=== PATIENT | male | born 1955 | race Caucasian/White ===

== ENCOUNTER → 2017-04-19 | Outpatient (CLI) | payer OTHER ==
[~2017-04-19] MED LIST: ALBU0.63 NEB; ASPI-496 PO; ATOR10TA PO; BISA5TAB5 PO; CHOL2000 PO; HYDR25TA11 PO; IPRA3AMP INH; LIDOCAINE PATCH TD; MORP-52 PO; NITR0.4T28 SL; SERT100T5 PO; WILL BRING LIST; ZOLP10TA5 PO
[2017-04-19 16:38] LABS: HEMATOCRIT 47.9 % (39.2-51.8); HEMOGLOBIN 16.3 g/dL (13.7-18.0); WHITE BLOOD COUNT 8.4 x10^3/uL (3.4-10)
[2017-04-19 16:56] LABS: BLOOD UREA NITROGEN 7 mg/dL (7-18)
[2017-04-19 16:57] LABS: ASPARTATE AMINO TRANSFERASE 40 U/L (15-37)
== END | disposition home or self-care (01) ==
LOC: STAR 15:28
PROVIDERS: ATTEND Surgery
DX: N63.0 Unspecified lump in unspecified breast (principal)
CPT/HCPCS: 36415; 80053; 85025; 85610; 93005

== ENCOUNTER 2017-04-24 08:04 | Day surgery (SDC) | payer OTHER ==
[~2017-04-24] VITALS: Ht 182.9 cm; Wt 102.6 kg
[~2017-04-24 08:04] MED LIST changes: -ALBU0.63 NEB; -ASPI-496 PO; -ATOR10TA PO; -BISA5TAB5 PO; -CHOL2000 PO; -HYDR25TA11 PO; -IPRA3AMP INH; -LIDOCAINE PATCH TD; -MORP-52 PO; -NITR0.4T28 SL; -SERT100T5 PO; -ZOLP10TA5 PO
[2017-04-24] MEDS ORDERED: LACTATED RINGERS 1,000 ML IV SCH (08:55)
[2017-04-24] MEDS ORDERED: MIDAZOLAM 1 MG/ML, 2ML ONE (08:57)
[2017-04-24] MEDS ORDERED: FENTANYL PF 100 MCG/2ML ONE ×2 (08:57)
[2017-04-24] MEDS ORDERED: PROPOFOL 10 MG/ML, 20ML ONE ×3 (08:59→10:59)
[2017-04-24] MEDS ORDERED: ONDANSETRON 2MG/ML, 2ML ONE (08:59)
[2017-04-24] MEDS ORDERED: DEXAMETHASONE 4 MG/ML, 1ML ONE ×2 (08:59→09:58)
[2017-04-24] MEDS ORDERED: SUCCINYLCHOLINE 20 MG/ML, 10ML ONE (09:08)
[2017-04-24] MEDS ORDERED: ALBU0.63 NEB (09:09)
[2017-04-24] MEDS ORDERED: SERT100T5 PO (09:09)
[2017-04-24] MEDS ORDERED: HYDR25TA11 PO (09:09)
[2017-04-24] MEDS ORDERED: BISA5TAB5 PO (09:09)
[2017-04-24] MEDS ORDERED: IPRA3AMP INH (09:09)
[2017-04-24] MEDS ORDERED: MORP-52 PO (09:09)
[2017-04-24] MEDS ORDERED: CHOL2000 PO (09:09)
[2017-04-24] MEDS ORDERED: ZOLP10TA5 PO (09:09)
[2017-04-24] MEDS ORDERED: ATOR10TA PO (09:09)
[2017-04-24] MEDS ORDERED: NITR0.4T28 SL (09:09)
[2017-04-24] MEDS ORDERED: ASPI-496 PO (09:09)
[2017-04-24] MEDS ORDERED: LIDOCAINE PATCH TD (09:09)
[2017-04-24 09:12] VITALS: BP 130/90
[2017-04-24] MEDS ORDERED: BUPIVACAINE/PF 0.5% ONE (09:38)
[2017-04-24] MEDS ORDERED: ISOSULFAN BLUE 10 MG/ML, 5ML IV ONE (09:38)
[2017-04-24] MEDS ORDERED: EPINEPHRINE 1 MG/ML, 1ML ONE (09:38)
[2017-04-24] MEDS ORDERED: ALBUTEROL SULFATE 200 PUFFS/8.5 GR INH ONE (09:58)
[2017-04-24] MEDS ORDERED: LIDOCAINE-MPF 2% ,5ML ONE (10:06)
[2017-04-24] MEDS ORDERED: HYDROmorphone 1 MG/ML, 1ML ONE ×3 (10:15→12:03)
[2017-04-24] MEDS ORDERED: CEFAZOLIN 1,000 MG ONE ×2 (10:18)
[2017-04-24] MEDS ORDERED: ONDANSETRON 2MG/ML, 2ML IVPush PRN (11:00)
[2017-04-24] MEDS ORDERED: ALBUTEROL/IPRATROPIUM 2.5MG/0.5MG, 3 ML NPPB PRN (11:00)
[2017-04-24] MEDS ORDERED: MIDAZOLAM 1 MG/ML, 2ML IV PRN (11:00)
[2017-04-24] MEDS ORDERED: MEPERIDINE/PF 25MG/0.5ML IVPush PRN (11:00)
[2017-04-24] MEDS ORDERED: PROMETHAZINE 25 MG/ML, 1ML IV PRN (11:00)
[2017-04-24] MEDS ORDERED: EPHEDRINE 50 MG/ML, 1ML IVPush PRN (11:00)
[2017-04-24] MEDS ORDERED: OXYcodone 5 MG/5 ML ORAL.SOL UDC PO PRN (11:00)
[2017-04-24] MEDS ORDERED: FENTANYL PF 100 MCG/2ML IV PRN (11:00)
[2017-04-24] MEDS ORDERED: ACETAMINOPHEN 650 MG/20.3 ML UDC ONE (11:28)
[2017-04-24] MEDS ORDERED: OXYcodone 5 MG/5 ML ORAL.SOL UDC ONE (11:28)
[2017-04-24] MEDS ORDERED: ACETAMINOPHEN 325 MG TABLET ONE (11:28)
[2017-04-24] MEDS: HYDROmorphone 1 MG/ML, 1ML IV PRN ×4 (11:40→12:05)
[2017-04-24] MEDS ORDERED: MEPERIDINE/PF 25MG/0.5ML ONE (11:48)
[2017-04-24] MEDS ORDERED: ACETAMINOPHEN 325 MG TABLET PO PRN (12:00)
== END 2017-04-24 14:05 ==
LOC: OUT 08:04
PROVIDERS: ATTEND Surgery
DX: N62 Hypertrophy of breast (principal); I10 Essential (primary) hypertension; E78.5 Hyperlipidemia, unspecified; J44.9 Chronic obstructive pulmonary disease, unspecified; F32.9 Major depressive disorder, single episode, unspecified; Z98.890 Other specified postprocedural states; Z79.82 Long term (current) use of aspirin; Z86.19 Personal history of other infectious and parasitic diseases
CPT/HCPCS: 19300; 88305; 88307; C1729; J0171; J0330; J0690; J1100; J1170; J2175; J2250; J2405; J2704; J3010; J3490; J7120

== ENCOUNTER 2017-06-05 12:42 | Emergency (ER) | payer OTHER ==
[~2017-06-05] VITALS: Ht 182.9 cm; Wt 100.0 kg
[~2017-06-05 12:42] MED LIST changes: +ALBU0.63 NEB; +ASPI-496 PO; +ATOR10TA PO; +BISA5TAB5 PO; +CHOL2000 PO; +HYDR25TA11 PO; +IPRA3AMP INH; +LIDOCAINE PATCH TD; +MORP-52 PO; +NITR0.4T28 SL; +SERT100T5 PO; +ZOLP10TA5 PO
[2017-06-05] MEDS ORDERED: ONDANSETRON 2MG/ML, 2ML IVPush ONE (13:30)
[2017-06-05] MEDS ORDERED: L.E.T SOLUTION TP ONE ×2 (13:30→13:32)
[2017-06-05] MEDS ORDERED: morphine SULFATE 10 MG/ML, 1ML ONE ×2 (13:54→14:11)
[2017-06-05] MEDS ORDERED: ONDANSETRON 2MG/ML, 2ML ONE (13:54)
[2017-06-05] MEDS: MORPHINE SULFATE 4 MG/ML, 1ML IVPush PRN ×2 (13:57→14:14)
[2017-06-05 16:14] VITALS: BP 117/60
== END 2017-06-05 16:45 | disposition home or self-care (01) ==
LOC: ED 14:51
DX: S62.002A Unspecified fracture of navicular [scaphoid] bone of left wrist, initial encounter for closed fracture (principal); S20.212A Contusion of left front wall of thorax, initial encounter; S00.81XA Abrasion of other part of head, initial encounter; G89.11 Acute pain due to trauma; E78.00 Pure hypercholesterolemia, unspecified; F17.210 Nicotine dependence, cigarettes, uncomplicated; F32.9 Major depressive disorder, single episode, unspecified; W01.0XXA Fall on same level from slipping, tripping and stumbling without subsequent striking against object, initial encounter; Y93.01 Activity, walking, marching and hiking; Y92.89 Other specified places as the place of occurrence of the external cause; Y99.8 Other external cause status
CPT/HCPCS: 29125; 70450; 71010; 72125; 73110; 96374; 96375; 96376; 99284; J2405

== ENCOUNTER 2018-06-22 21:52 | Inpatient (IN) | payer OTHER ==
[~2018-06-22] VITALS: Ht 182.9 cm; Wt 100.0 kg
[~2018-06-22 21:52] MED LIST changes: -IPRA3AMP INH; +IPRA3AMP30 INH; +OMNIPAQUE 350 MG/ML, 100ML BOTTLE ONE
[2018-06-22 22:30] LABS: BASOPHILS # (AUTO) 0.02 x10^3/uL (0-0.1); BASOPHILS % (AUTO) 0 % (0-1); EOSINOPHILS # (AUTO) 0.12 x10^3/uL (0-0.4); EOSINOPHILS % (AUTO) 2 % (1-7); LYMPHOCYTES # (AUTO) 1.89 x10^3/uL (1-3.4); LYMPHOCYTES % (AUTO) 28 % (22-44); MD NO; MEAN CORPUSCULAR HEMOGLOBIN 30.8 pg (27.5-34.5); MEAN CORPUSCULAR HGB CONC 34.1 g/dL (33.2-36.2); MEAN CORPUSCULAR VOLUME 90.4 fL (81-97); MONOCYTES # (AUTO) 0.62 x10^3/uL (0.2-0.8); MONOCYTES % (AUTO) 9 % (2-9); NEUTROPHILS # (AUTO) 4.08 x10^3/uL (1.8-6.8); NEUTROPHILS % (AUTO) 61 % (42-75); PLATELET COUNT 170 x10^3/uL (130-400); RED BLOOD COUNT 4.85 x10^6/uL (4.38-5.82); RED CELL DISTRIBUTION WIDTH 14.4 % (9.4-14.8)
[2018-06-22 22:38] LABS: INTERNATIONAL NORMALIZED RATIO 1.01 (0.93-1.1); PROTHROMBIN TIME 10.7 Seconds (9.6-11.5)
[2018-06-22 22:43] LABS: TROPONIN I < 0.015 ng/mL (0.000-0.045)
[2018-06-22] MEDS ORDERED: ALTEPLASE 1 MG/ML ONE (22:47)
[2018-06-22] MEDS ORDERED: ALTEPLASE 9 MG in SYRINGE 1 EA IV ONE (23:00)
[2018-06-22] MEDS ORDERED: ALTEPLASE 81 MG in BAG 1 EACH IV ONE (23:00)
[2018-06-23] MEDS ORDERED: SODIUM CHLORIDE 0.9% 1,000 ML IV SCH (00:14)
[2018-06-23] MEDS ORDERED: ONDANSETRON 2MG/ML, 2ML IVPush PRN (00:30)
[2018-06-23] MEDS ORDERED: ENALAPRILAT 1.25 MG/ML, 2ML IV PRN (00:30)
[2018-06-23] MEDS ORDERED: LABETALOL 5MG/ML, 20ML IV PRN (00:30)
[2018-06-23] MEDS ORDERED: BUDESONIDE 0.5 MG/2 ML INHA ONE (00:53)
[2018-06-23] MEDS ORDERED: ALBUTEROL/IPRATROPIUM 2.5MG/0.5MG, 3 ML ONE (00:53)
[2018-06-23 00:55] LABS: FREE T4 (FREE THYROXINE) 0.8 ng/dL (0.76-1.46); THYROID STIMULATING HORMONE 1.67 mIU/L (0.358-3.740)
[2018-06-23] MEDS: ALBUTEROL/IPRATROPIUM 2.5MG/0.5MG, 3 ML NPPB SCH ×5 (00:57→20:33)
[2018-06-23] MEDS: BUDESONIDE 0.5 MG/2 ML INHA INH SCH ×3 (00:57→20:33)
[2018-06-23] MEDS ORDERED: ACETAMINOPHEN 650 MG SUPP PR PRN (01:00)
[2018-06-23] MEDS ORDERED: ALBUTEROL SULFATE 2.5 MG/3 ML NPPB PRN (01:00)
[2018-06-23 01:03] LABS: HEMOGLOBIN A1C 5.8 % (4.2-6.3)
[2018-06-23] MEDS: morphine SULFATE 10 MG/ML, 1ML IVPush PRN ×5 (01:45→23:58)
[2018-06-23] MEDS ORDERED: ALBUTEROL/IPRATROPIUM 2.5MG/0.5MG, 3 ML NPPB SCH (03:00)
[2018-06-23 04:00] VITALS: BP 115/80
[2018-06-23] MEDS ORDERED: BUDESONIDE 0.5 MG/2 ML INHA INH SCH (09:00)
[2018-06-23] MEDS ORDERED: LORazepam 2 MG/ML, 1ML IVPush ONE (09:30)
[2018-06-23] MEDS ORDERED: GADOBUTROL 10 MMOL/10 ML PFS ONE (10:29)
[2018-06-23] MEDS ORDERED: PROPOFOL 0 ML IV ONE (14:31)
[2018-06-23] MEDS ORDERED: ATORVASTATIN 40 MG TABLET PO SCH (21:00)
[2018-06-24] MEDS: ALBUTEROL/IPRATROPIUM 2.5MG/0.5MG, 3 ML NPPB SCH ×2 (02:44→06:07)
[2018-06-24 04:00] VITALS: BP 106/66
[2018-06-24 04:16] LABS: BASOPHILS # (AUTO) 0.02 x10^3/uL (0-0.1); BASOPHILS % (AUTO) 0 % (0-1); EOSINOPHILS # (AUTO) 0.16 x10^3/uL (0-0.4); EOSINOPHILS % (AUTO) 2 % (1-7); LYMPHOCYTES # (AUTO) 2.06 x10^3/uL (1-3.4); LYMPHOCYTES % (AUTO) 30 % (22-44); MD NO; MEAN CORPUSCULAR HEMOGLOBIN 30.7 pg (27.5-34.5); MEAN CORPUSCULAR HGB CONC 34.1 g/dL (33.2-36.2); MEAN CORPUSCULAR VOLUME 89.9 fL (81-97); MEAN PLATELET VOLUME 7.5 fL (7.4-10.4); MONOCYTES % (AUTO) 9 % (2-9); NEUTROPHILS # (AUTO) 4.08 x10^3/uL (1.8-6.8); NEUTROPHILS % (AUTO) 59 % (42-75); PLATELET COUNT 154 x10^3/uL (130-400); RED BLOOD COUNT 4.82 x10^6/uL (4.38-5.82); RED CELL DISTRIBUTION WIDTH 13.8 % (9.4-14.8)
[2018-06-24 04:30] LABS: ALANINE AMINOTRANSFERASE 25 U/L (12-78); ALBUMIN 3.7 g/dL (3.4-5.0); ANION GAP 7 mmol/L (5-15); CHLORIDE 110 mmol/L (98-107); CHOLESTEROL, TOTAL 112 mg/dL (140-239); CREATININE 0.94 mg/dL (0.7-1.3)
[2018-06-24 04:33] LABS: ALKALINE PHOSPHATASE 70 U/L (45-117); BILIRUBIN,TOTAL 0.4 mg/dL (0.2-1.0); HDL CHOL % 33 % (26-37); HDL CHOLESTEROL (DIRECT) 37 mg/dL (40-60); LDL CHOLESTEROL,CALCULATED 44 mg/dL (54-169); LDL/HDL RATIO 1.2 (0.5-3.0); TOTAL PROTEIN 6.6 g/dL (6.4-8.2); TRIGLYCERIDES 156 mg/dL (50-200); VLDL CHOLESTEROL 31 mg/dL (0-25)
[2018-06-24] MEDS: morphine SULFATE 10 MG/ML, 1ML IVPush PRN (05:43)
[2018-06-24] MEDS: BUDESONIDE 0.5 MG/2 ML INHA INH SCH (06:07)
[2018-06-24] MEDS ORDERED: ASPIRIN 325 MG TABLET EC PO SCH (07:30)
[2018-06-24] MEDS ORDERED: SERTRALINE 100MG TABLET PO SCH (09:00)
== END 2018-06-24 09:55 | disposition left against medical advice (07) | DRG 62 ==
LOC: ED 23:24 → EDIP 23:35 → CCU 06-23 01:09 → 4EST 06-24 09:18
PROVIDERS: ADMIT Internal Medicine; ATTEND Internal Medicine
DX: I63.9 Cerebral infarction, unspecified (principal); M48.54XA Collapsed vertebra, not elsewhere classified, thoracic region, initial encounter for fracture; J44.9 Chronic obstructive pulmonary disease, unspecified; G40.909 Epilepsy, unspecified, not intractable, without status epilepticus; F17.200 Nicotine dependence, unspecified, uncomplicated; E78.00 Pure hypercholesterolemia, unspecified; M50.30 Other cervical disc degeneration, unspecified cervical region; B19.20 Unspecified viral hepatitis C without hepatic coma; R47.01 Aphasia; R29.713 NIHSS score 13; N62 Hypertrophy of breast; F32.9 Major depressive disorder, single episode, unspecified; R29.810 Facial weakness; Z53.21 Procedure and treatment not carried out due to patient leaving prior to being seen by health care provider; Z80.42 Family history of malignant neoplasm of prostate; Z79.899 Other long term (current) drug therapy; Z87.820 Personal history of traumatic brain injury; Z90.11 Acquired absence of right breast and nipple; Z85.47 Personal history of malignant neoplasm of testis; Z85.3 Personal history of malignant neoplasm of breast; Z91.81 History of falling; Z90.10 Acquired absence of unspecified breast and nipple
CPT/HCPCS: 36415; 99291; J7620; J7626; 70450; 70496; 70498; 70553; 80047; 80053; 80061; 80307; 83036; 83735; 84439; 84443; 84484; 85025; 85610; 85730; 87081; 93005; 93306; 93880; 94640; A9585; G0378; Q9967; J2060; J2270; J7030

== ENCOUNTER → 2020-03-18 | Outpatient (CLI) | payer OTHER ==
[~2020-03-18] MED LIST changes: +ACETAMINOPHEN 325 MG TABLET PO PRN; +HYDR-826 PO; -HYDR25TA11 PO; +HYDROmorphone 1 MG/ML, 1ML INJ IM PRN; +KETOROLAC 30 MG/1 ML IVPush SCH; +LABETALOL 5MG/ML, 20ML IVPush SCH; -OMNIPAQUE 350 MG/ML, 100ML BOTTLE ONE; +ONDANSETRON 2MG/ML, 2ML IVPush PRN; +OXYcodone/APAP 5/325MG TABLET PO PRN; +PROMETHAZINE 25 MG/ML, 1ML IM PRN; +SERT100T32 PO; -SERT100T5 PO
== END | disposition home or self-care (01) ==
LOC: OUT 08:00 → EDSTATUS 13:30
PROVIDERS: ATTEND Orthopaedic Surgery
DX: Z01.812 Encounter for preprocedural laboratory examination (principal); Z20.828 Contact with and (suspected) exposure to other viral communicable diseases; S83.249A Other tear of medial meniscus, current injury, unspecified knee, initial encounter; X58.XXXA Exposure to other specified factors, initial encounter; Y93.89 Activity, other specified; Y92.89 Other specified places as the place of occurrence of the external cause; Y99.8 Other external cause status
CPT/HCPCS: 36415; 87635

== ENCOUNTER 2020-05-27 05:31 | Day surgery (SDC) | payer OTHER ==
[~2020-05-27] VITALS: Ht 182.9 cm; Wt 103.0 kg
[~2020-05-27 05:31] MED LIST changes: -ACETAMINOPHEN 325 MG TABLET PO PRN; -HYDROmorphone 1 MG/ML, 1ML INJ IM PRN; -KETOROLAC 30 MG/1 ML IVPush SCH; -LABETALOL 5MG/ML, 20ML IVPush SCH; -ONDANSETRON 2MG/ML, 2ML IVPush PRN; -OXYcodone/APAP 5/325MG TABLET PO PRN; -PROMETHAZINE 25 MG/ML, 1ML IM PRN
[2020-05-27] MEDS ORDERED: BUPIVACAINE/PF 0.5% ONE (06:02)
[2020-05-27] MEDS ORDERED: CHLORHEXIDINE 15 ML UDC MM ONE (06:30)
[2020-05-27] MEDS ORDERED: LACTATED RINGERS 1,000 ML IV SCH (06:30)
[2020-05-27 06:40] VITALS: BP 122/79
[2020-05-27] MEDS ORDERED: FENTANYL PF 100 MCG/2ML ONE ×2 (06:47→07:19)
[2020-05-27] MEDS ORDERED: MIDAZOLAM 1 MG/ML, 2ML ONE (06:47)
[2020-05-27] MEDS ORDERED: OXYC-306 PO (06:56)
[2020-05-27] MEDS ORDERED: BUPR1FIL7 SL (06:56)
[2020-05-27] MEDS ORDERED: ACETAMINOPHEN 325 MG TABLET PO PRN (07:00)
[2020-05-27] MEDS ORDERED: NITROGLYCERIN SINGLE TAB 0.4 MG SL SCH (07:00)
[2020-05-27] MEDS ORDERED: ONDANSETRON 2MG/ML, 2ML ONE (07:00)
[2020-05-27] MEDS ORDERED: CEFAZOLIN 1,000 MG ONE (07:00)
[2020-05-27] MEDS ORDERED: KETOROLAC 30 MG/1 ML IVPush SCH (07:00)
[2020-05-27] MEDS ORDERED: ONDANSETRON 2MG/ML, 2ML IVPush PRN (07:00)
[2020-05-27] MEDS ORDERED: morphine SULFATE 10 MG/ML, 1ML IVPush PRN (07:00)
[2020-05-27] MEDS ORDERED: PROPOFOL 10 MG/ML, 20ML ONE (07:00)
[2020-05-27] MEDS ORDERED: OXYcodone 5 MG/5 ML ORAL.SOL UDC PO PRN ×2 (07:00→07:30)
[2020-05-27] MEDS ORDERED: TEMPLATE NON-FORMULARY MED. (Albuterol Sulfate (Albuterol Sulfate**) 1 VIAL) NEB PRN (07:00)
[2020-05-27] MEDS ORDERED: DEXAMETHASONE 4 MG/ML, 1ML ONE (07:00)
[2020-05-27] MEDS ORDERED: PROMETHAZINE 25 MG/ML, 1ML IM PRN (07:00)
[2020-05-27] MEDS ORDERED: ALBUTEROL/IPRATROPIUM 2.5MG/0.5MG, 3 ML HHN SCH (07:00)
[2020-05-27] MEDS ORDERED: PROMETHAZINE 25 MG/ML, 1ML IVPush PRN (07:30)
[2020-05-27] MEDS ORDERED: MEPERIDINE/PF 25MG/0.5ML IVPush PRN (07:30)
[2020-05-27] MEDS ORDERED: HYDROmorphone 1 MG/ML, 1ML INJ IVPush PRN (07:30)
[2020-05-27] MEDS ORDERED: HYDROcodone/APAP 7.5-325MG/15ML UDC PO PRN (07:30)
[2020-05-27] MEDS ORDERED: FENTANYL PF 100 MCG/2ML IV PRN (07:30)
[2020-05-27] MEDS ORDERED: DIAZEPAM 5 MG/ML, 2ML IVPush PRN (07:30)
[2020-05-27] MEDS ORDERED: KETOROLAC 30 MG/1 ML ONE (08:09)
[2020-05-27] MEDS ORDERED: SERTRALINE 100MG TABLET PO SCH (09:00)
[2020-05-27] MEDS ORDERED: ATORVASTATIN 10 MG TABLET PO SCH (21:00)
[2020-05-27] MEDS ORDERED: ZOLPIDEM 10MG TABLET PO SCH (21:00)
== END 2020-05-27 09:31 | disposition home or self-care (01) ==
LOC: OUT 05:31
PROVIDERS: ATTEND Orthopaedic Surgery
DX: M23.321 Other meniscus derangements, posterior horn of medial meniscus, right knee (principal); Z20.828 Contact with and (suspected) exposure to other viral communicable diseases; I10 Essential (primary) hypertension; I25.10 Atherosclerotic heart disease of native coronary artery without angina pectoris; J44.9 Chronic obstructive pulmonary disease, unspecified; G40.909 Epilepsy, unspecified, not intractable, without status epilepticus; E66.9 Obesity, unspecified; Z79.899 Other long term (current) drug therapy; Z87.891 Personal history of nicotine dependence; Z88.8 Allergy status to other drugs, medicaments and biological substances; Z82.61 Family history of arthritis; Z99.81 Dependence on supplemental oxygen
CPT/HCPCS: 29881; 87635; J0690; J1100; J1170; J1885; J2250; J2405; J2704; J3010; J7120